=== PATIENT | female | born 1945 | race Caucasian/White ===

== ENCOUNTER 2021-02-11 09:45 | Outpatient (REF) | payer MEDICARE, SELFPAY ==
--- NOTE | ~2021-02-11 | MM_ITS ---
EXAMINATION: MM SCREENING DIGITAL BREAST TOMOSYNTHESIS, BILATERAL CLINICAL INFORMATION: Screening. Asymptomatic. The lifetime risk of breast cancer based on the Tyrer-Cuzick Model is 4%. COMPARISON: Mammography: 02/06/2020, 12/07/2018, 12/05/2017, 10/19/2016 TECHNIQUE: Digital breast tomosynthesis is performed in both the craniocaudal and mediolateral oblique views along with computer-aided detection (CAD). Synthesized 2D images are generated from the tomosynthesis. Additional left exaggerated CC view is provided. FINDINGS: There are scattered areas of fibroglandular density (ACR BI-RADS breast composition Category b). Left breast has focal lobular parenchymal asymmetry posterior 3:00. On the tomography, there is suggestion of probable fibrocystic changes in this area approximately 1.5 cm. Patient will be recalled for additional imaging. Remainder of the left breast is unremarkable. The right breast shows no significant changes from prior studies. Again, there is a dermal lesion 6:00 position right breast. Neither breast shows abnormal calcifications. The axilla are unremarkable. MM/MM tomosynthesis screening BI IMPRESSION: 1. Left: Parenchymal asymmetry posterior 3:00 position, possibly fibrocystic changes. 2. Right: No mammographic evidence of malignancy. ASSESSMENT: BI-RADS 0: Incomplete - Need Additional Imaging Evaluation RECOMMENDATION: 1. Additional views of the left breast (3-D spot MLO, 3-D spot CC). 2. Targeted ultrasound if warranted after review of the additional views. 3. Radiology department staff will contact the patient for additional imaging. This patient's information was entered into a reminder system with a target due date for their next mammogram.
== END 2021-02-11 09:46 | disposition home or self-care (01) ==
LOC: HO.MAMMO 09:45
PROVIDERS: PCP Internal Medicine; Visit Provider Internal Medicine
DX: Z12.31 Encounter for screening mammogram for malignant neoplasm of breast (principal)
CPT/HCPCS: 77063; 77067

== ENCOUNTER 2021-02-25 09:51 | Outpatient (REF) | payer MEDICARE, SELFPAY ==
--- NOTE | ~2021-02-25 | MM_ITS ---
EXAMINATION: MM DIAGNOSTIC DIGITAL BREAST TOMOSYNTHESIS, LEFT US DIAGNOSTIC ULTRASOUND BREAST, LEFT CLINICAL INFORMATION: Recall from screening for parenchymal asymmetry posterior 3:00 left breast, possibly fibrocystic changes. TC score 4%. COMPARISON: Mammography: Mammography 02/11/2021, 02/06/2020, 12/07/2018 TECHNIQUE: Digital breast tomosynthesis is performed. 2D images are generated from the tomosynthesis. The following views are obtained: Spot CC, spot MLO, standard ML. Ultrasound left breast is targeted to the central and 3:00 position. Patient is imaged supine and semi-oblique with arm elevated. Grayscale imaging and color Doppler are performed without and with harmonics. FINDINGS: The breasts are heterogeneously dense, which may obscure small masses (ACR BI-RADS breast composition Category c). The additional views confirm smooth benign-appearing nodule posterior 3:00 position 6.7 cm from nipple and measuring 1.3 x 1.1 cm in size. There is no architectural abnormality. Ultrasound demonstrates anechoic cyst posterior 3:00 position close to chest wall measuring 1.4 x 0.5 x 0.9 cm. Margins are smooth. There is increased through-transmission of sound. No color flow. There are a few other smaller cysts noted in the mid outer left breast the two largest measuring only 0.8 cm and 0.3 cm. No solid mass or architectural abnormality. Results are discussed with the patient at time of visit. MM/MM tomosynthesis added views L IMPRESSION: 1. Simple cyst posterior 3:00 position measuring 1.4 cm. 2. Several smaller cysts mid outer left breast under 1 cm. ASSESSMENT: BI-RADS 2: Benign RECOMMENDATION: Routine annual mammography screening. This patient's information was entered into a reminder system with a target due date for their next mammogram.
== END 2021-02-25 09:52 | disposition home or self-care (01) ==
LOC: HO.MAMMO 09:51
PROVIDERS: Visit Provider Internal Medicine
DX: N64.89 Other specified disorders of breast (principal)
CPT/HCPCS: 76642; 77061; 77065

== ENCOUNTER 2022-03-10 09:19 | Outpatient (REF) | payer MEDICARE, SELFPAY ==
--- NOTE | ~2022-03-10 | MM_ITS ---
EXAMINATION: MM SCREENING DIGITAL BREAST TOMOSYNTHESIS, BILATERAL CLINICAL INFORMATION: Screening. Asymptomatic. The lifetime risk of breast cancer based on the Tyrer-Cuzick Model is 3%. COMPARISON: Mammography: 02/25/2021, 02/11/2021, 02/06/2020, 12/07/2018; targeted left breast ultrasound 02/25/2021. TECHNIQUE: Digital breast tomosynthesis is performed in both the craniocaudal and mediolateral oblique views along with computer-aided detection (CAD). Synthesized 2D images are generated from the tomosynthesis. FINDINGS: The breasts are heterogeneously dense, which may obscure small masses (ACR BI-RADS breast composition Category c). There are no significant masses, abnormal calcifications, or other abnormalities. There is no developing density or architectural abnormality. There are dermal lesions overlying the posterior medial left breast and anterior right breast, marked with skin markers. Fibrocystic changes posterior left breast are decreased from prior exam. MM/MM tomosynthesis screening BI IMPRESSION: No mammographic evidence of malignancy. ASSESSMENT: BI-RADS 2: Benign RECOMMENDATION: Routine annual mammography screening. This patient's information was entered into a reminder system with a target due date for their next mammogram.
== END 2022-03-10 09:20 | disposition home or self-care (01) ==
LOC: HO.MAMMO 09:19
PROVIDERS: PCP Internal Medicine; Visit Provider Internal Medicine
DX: Z12.31 Encounter for screening mammogram for malignant neoplasm of breast (principal)
CPT/HCPCS: 77063; 77067

== ENCOUNTER 2023-03-16 12:28 | Outpatient (REF) | payer MEDICARE, SELFPAY ==
--- NOTE | ~2023-03-16 | MM_ITS ---
EXAMINATION: MM SCREENING DIGITAL BREAST TOMOSYNTHESIS, BILATERAL CLINICAL INFORMATION: Screening. Asymptomatic. COMPARISON: Mammography: This study is compared with prior exams dating back to 2018. TECHNIQUE: Digital breast tomosynthesis is performed in both the craniocaudal and mediolateral oblique views along with computer-aided detection (CAD). Synthesized 2D images are generated from the tomosynthesis. FINDINGS: The breasts are heterogeneously dense, which may obscure small masses (ACR BI-RADS breast composition Category c). There is a focal asymmetry in the 3:00 region of the right breast and anterior depth. Additional mammographic and targeted sonographic evaluation of this finding are warranted. In the left breast, there are no significant masses, abnormal calcifications, or other abnormalities. MM/MM tomosynthesis screening BI IMPRESSION: Focal asymmetry of the 3:00 region of the right breast warrants additional mammographic and targeted sonographic evaluation. No mammographic signs of malignancy left breast. ASSESSMENT: BI-RADS BI-RADS 0 - Incomplete: Needs additional Imaging. RECOMMENDATION: 1. Additional views of the right breast. 2. Targeted ultrasound if warranted after review of the additional views. 3. Radiology department staff will contact the patient for additional imaging. Additional Imaging required This examination should not preclude the clinical evaluation of a suspicious palpable abnormality. This patient's information was entered into a reminder system with a target due date for their next mammogram.
== END 2023-03-16 12:29 | disposition home or self-care (01) ==
LOC: HO.MAMMO 12:28
PROVIDERS: PCP Internal Medicine; Visit Provider Internal Medicine
DX: Z12.31 Encounter for screening mammogram for malignant neoplasm of breast (principal)
CPT/HCPCS: 77063; 77067

== ENCOUNTER → 2023-03-16 12:30 | Outpatient (BNV) | payer MEDICARE, SELFPAY | PROVIDERS: PCP Internal Medicine; Visit Provider Radiology Diagnostic Radiology | DX: Z12.31 Encounter for screening mammogram for malignant neoplasm of breast (principal) | CPT/HCPCS: 77063; 77067 ==

== ENCOUNTER 2023-04-25 11:16 | Outpatient (REF) | payer MEDICARE, SELFPAY ==
--- NOTE | ~2023-04-25 | US_ITS ---
EXAMINATION: MM DIAGNOSTIC DIGITAL BREAST TOMOSYNTHESIS, RIGHT US BREAST LIMITED, RIGHT MAMMOGRAPHY: CLINICAL INFORMATION: Callback for focal asymmetry in the 2:00 to 3:00 periareolar region right breast seen on screening exam. COMPARISON: Mammography: Screening mammography 03/16/2023. Exams dating back to 2014. TECHNIQUE: Digital breast tomosynthesis is performed in the following views: Right full-field 3-D 90 degrees ML view, 3-D right MLO spot compression view, and 3-D right CC spot compression view x2. FINDINGS: The breasts are heterogeneously dense, which may obscure small masses (ACR BI-RADS breast composition Category c). There is a spiculated appearing mass in the 2:00 axis of the right breast, with a solitary associated inferior punctate microcalcification, with the diameter of the lesion measuring 1.4 cm approximately. There may be 2 abutting smaller lesions in the slightly more posterior lateral right breast. This is also seen on the CC spot compression views in the slightly medial right breast, with extensive desmoplastic reaction. This will be evaluated by ultrasound. ULTRASOUND: CLINICAL INFORMATION: Spiculated appearing mass, 2:00 axis right breast, anterior one third. COMPARISON: None contributory. TECHNIQUE: Targeted sonographic evaluation was performed using a high frequency linear transducer. She was given to the 2:00 axis of the right breast. Selected archived documentation. FINDINGS: RIGHT BREAST: Within the right breast at the 2:00 axis, 2 cm from the nipple, there is an extremely hypoechoic irregular lesion with posterior acoustic shadowing, macrolobulated border, desmoplastic reaction with hyperechoic surrounding fat, there is mild abutting and internal color Doppler signal in regard to this lesion, which is also taller than wide, measuring 1.4 x 1.1 x 0.9 cm. This lesion is highly suspicious and ultrasound-guided biopsy recommended. Slightly directly inferior to this lesion in the 3:00 axis are some dilated periareolar ducts, 2 cm from the nipple, which appear to have some hypoechoic material within, possibly representing tumor or debris. This area could also be biopsied or evaluated by MRI. US/US breast RT limited mamm only IMPRESSION: Irregular hypoechoic mass, wider than tall, right breast 2:00 axis, 2 cm from the nipple as discussed above, correlating with the mammographic focus of concern. This is highly suspicious and ultrasound-guided biopsy is recommended. Inferior to this mass, there are dilated debris or possibly tumor filled ducts at the 3:00 axis, 2 cm from the nipple, retroareolar region. This area could be biopsied as well. Alternatively, MRI could be considered to assess disease extent. Findings and recommendations were discussed with the patient in detail. OVERALL ASSESSMENT: Mammography: BI-RADS 4 - Suspicious finding Ultrasound: BI-RADS 4 - Suspicious finding RECOMMENDATION: Biopsy recommended This patient's information was entered into a reminder system with a target due date for their next mammogram.
== END 2023-04-25 11:17 | disposition home or self-care (01) ==
LOC: HO.MAMMO 11:16
PROVIDERS: Visit Provider Internal Medicine
DX: N64.89 Other specified disorders of breast (principal)
CPT/HCPCS: 76642; 77061; 77065

== ENCOUNTER → 2023-04-25 11:30 | Outpatient (BNV) | payer MEDICARE, SELFPAY | PROVIDERS: Visit Provider Radiology Diagnostic Radiology | DX: N60.01 Solitary cyst of right breast (principal); R92.0 Mammographic microcalcification found on diagnostic imaging of breast | CPT/HCPCS: 76642; 77061; 77065; G0279 ==

== ENCOUNTER 2023-05-10 08:22 | Outpatient (AMB) | payer MEDICARE, SELFPAY ==
--- NOTE | 2023-05-10 08:23 | MHC.OFFVIS ---
Intake Vital Signs 05/10/23 08:31 Height 5 ft 7 in Weight 190 lb BMI 29.8 BP 138/76 Blood Pressure Location Lt brachial Position Sitting Pulse 95 Intake Visit Reasons: US biopsy Right breast mass @ 2 o'clock Intake Note: This patient presents for an assessment for Ultrasound guided biopsy for right breast mass at 2 o'clock. Patient c/o; reports no breast complaints at this time. 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 She had undergone a screening mammogram 3 weeks ago and was recall because of abnormal findings. She underwent targeted mammogram and ultrasound showing an irregular hypoechoic mass in the right breast, at the 2 o'clock position.. This was another area with note of dilated debris-filled ducts the 3 o'clock position although neoplastic process could not be ruled out. An MRI versus biopsy of both sites had been recommended for the right breast masses. The patient denies any palpable breast masses Her menarche was at age of 13. Her 1st was at age of 28. She had 2 pregnancies. She menopause in her early 50s. She stated that she took fertility medications to get . [facility] Medical History (Updated 05/10/23 @ 08:58 by Saroj Julien MD) Hypertension Breast mass, right Surgical History (Updated 05/10/23 @ 08:34 by DAYRON Kohler) H/O: section History of carpal tunnel surgery (~2006) Family History (Updated 05/10/23 @ 08:35 by DAYRON Kohler) Mother Uterine cancer Father Prostate cancer Brother Lung cancer Sister Lung cancer Social History Alcohol intake: never Patient Tobacco Use Status: Never used Tobacco Female Reproductive History Menstrual Age of Menarche: 13 Total pregnancies: 2 Review of Systems Const Denies chills and Denies fever(s) Card Denies chest pain, Denies dyspnea and Denies dyspnea on exertion Resp Denies cough, Denies dyspnea and Denies dyspnea on exertion GI Denies hematochezia and Denies change in bowel habits Denies hematuria Musc Denies back pain and Denies limited range of motion Neuro Denies focal weakness and Denies convulsions Psych Denies depression and Denies mood swings Physical Exam Vital Signs: Last Vital Signs Pulse 95 05/10/23 08:31 BP 138/76 05/10/23 08:31 BMI result Body Mass Index 29.8 Const General: comfortable and no acute distress Orientation/consciousness: patient oriented x3 Neck Neck: Yes no lymphadenopathy Chest Other: No palpable breast masses, no nipple or skin changes, no axillary lymphadenopathy Resp Auscultation: clear to auscultation bilaterally Cardio Rhythm: regular rhythm GI Palpation (GI): Soft to palpation, nontender and no guarding Neuro General: patient oriented x3 Assessment & Plan Assessment & Plan (1) Breast mass, right: Code(s): N63.10 - Unspecified lump in the right breast, unspecified quadrant Plan: Her mammogram and ultrasound show to breast masses on the right side as described above. I discussed this with the radiologist and he felt that he might be best to proceed with ultrasound biopsy of both sites I explained this to the patient. I discussed with her the technique of this procedure [facility] I will see her next week to discuss the path report. She seems to understand the plan well and is comfortable with Orders: Orders US breast ndl core biopsy RT 05/09/23 N63.10 - Unspecified lump in the right breast, unspecified quadrant US breast ndl core bio ea add Today N63.10 - Unspecified lump in the right breast, unspecified quadrant Coding Level of Care Code New Pt Level 3 (73129) Diagnoses Breast mass, right N63.10
[2023-05-10 08:31] VITALS: BP 138/76; PULSE 95; BMI 29.8
== END 2023-05-10 08:59 | disposition home or self-care (01) ==
PROVIDERS: PCP Internal Medicine; Visit Provider Surgery
DX: N63.10 Unspecified lump in the right breast, unspecified quadrant (principal)
CPT/HCPCS: 99203

== ENCOUNTER 2023-05-10 09:41 | Outpatient (REF) | payer MEDICARE, SELFPAY ==
--- NOTE | ~2023-05-10 | MM_ITS ---
PROCEDURE: US GUIDED BREAST BIOPSY, RIGHT CLINICAL INFORMATION: 2 site biopsy right breast: 1) Suspicious mass right breast 2:00 axis, 2 cm from the nipple, (site A) recommended for biopsy (BI-RADS 4). 2) Suspicious linear mass 2:00 axis periareolar right breast, (site B) recommended for biopsy (BI-RADS 4). COMPARISON: Mammography and ultrasound 05/05/2023, mammography 03/16/2023. PROCEDURAL DETAILS: The details of the procedure, as well as the risks, benefits, and alternatives to the procedure were explained to the patient in detail and all of her questions were answered, after which written informed consent was obtained. 2 sites and side were confirmed. 1) SITE A. Prior to the procedure, sonography revealed an irregular lobular hypoechoic shadowing taller than wide mass at the 2:00 axis right breast, 2 cm from the nipple, measuring 1.4 x 1.1 x 0.9 cm approximately. A time-out was performed, the lesion intended for biopsy was targeted, and the skin overlying the lesion was then prepped and draped in the usual sterile fashion. Using sonographic guidance, sterile technique, and 1% lidocaine without epinephrine for local anesthesia, 3 suitable core biopsies were obtained through the targeted area with a 14G spring loaded Achieve core biopsy device. There was real-time confirmation of appropriate needle passage. Sampling was documented. At the completion of tissue sampling, a single open coil-shaped metallic clip was deposited at the biopsy site. 2) SITE B. Prior to the procedure, sonography revealed a suspicious hypoechoic dilated duct in the right breast 3:00 axis, retroareolar location, measuring approximately 1.0 x 0.4 cm.. The lesion intended for biopsy was targeted, and the skin of the overlying the lesion was then prepped and draped in the usual sterile fashion. Using sonographic guidance, sterile technique, and 1% lidocaine without epinephrine for local anesthesia, 3 adequate core biopsies were obtained through the targeted area with a 14G spring loaded Achieve core biopsy device. There was real-time confirmation of appropriate needle passage. Sampling was documented. At the completion of tissue sampling, a single butterfly-shaped metallic clip was deposited at the biopsy site. There was no evidence of immediate complication. SPECIMEN: Appropriate samples were obtained from both sites. DIGITAL POST-PROCEDURE MAMMOGRAPHY: Breast density: The tissue is heterogeneously dense which may obscure small masses. BI-RADS version 5, category C. There are no new mammographic findings demonstrated. The postprocedure 2-view direct digital mammogram reveals satisfactory positioning of the SITE B (open coil) biopsy clip without migration, located centrally within the biopsied mass. The butterfly biopsy clip (SITE A) was noted to have migrated inferiorly from the biopsied mass approximately 5 mm, and laterally to the biopsied mass approximately 8 mm. This should be noted before surgery is undertaken. No evidence of hematoma. The patient tolerated the procedure well and, after assuring adequate hemostasis, was discharged in good condition after reviewing postbiopsy breast care instructions. Final pathology results are pending. MM/MM diagnostic mammo unilat RT IMPRESSION: 1. No immediate complication from ultrasound-guided 2 site percutaneous biopsy right breast. 2. Ultrasound was used to localize and guide marker dual clip placement. 3. The 2-view direct digital postprocedure mammogram reveals satisfactory positioning of the open coil biopsy clip, however the butterfly biopsy clip had migrated as detailed above. This should be noted before surgery is undertaken. 4. Final pathology results are pending. A separate report with final recommendations will be issued once these results are made available.
[2023-05-10] MEDS: Sodium Bicarbonate 8.4% 50 MEQ/50 ML VIAL SUBCUT (11:58)
[2023-05-10] MEDS: Lidocaine HCl 1 % 20 ML VIAL 18 ML SUBCUT (12:01)
== END 2023-05-10 09:42 | disposition home or self-care (01) ==
LOC: HO.MAMMO 09:41
PROVIDERS: Visit Provider Surgery
DX: C50.211 Malignant neoplasm of upper-inner quadrant of right female breast (principal); Z17.0 Estrogen receptor positive status [ER+]; Z79.899 Other long term (current) drug therapy
CPT/HCPCS: 19083; 19084; 77062; 77065; 88305; 88360; 99202; A4648

== ENCOUNTER → 2023-05-10 10:00 | Outpatient (BNV) | payer MEDICARE, SELFPAY | PROVIDERS: Visit Provider Radiology Diagnostic Radiology | DX: D05.11 Intraductal carcinoma in situ of right breast (principal); D24.2 Benign neoplasm of left breast | CPT/HCPCS: 19083; 19084; 77065 ==

== ENCOUNTER 2023-05-17 09:01 | Outpatient (AMB) | payer MEDICARE, SELFPAY ==
--- NOTE | 2023-05-17 09:02 | A.OFFVIS_ITS ---
Intake Vital Signs 05/17/23 09:08 Height 5 ft 7 in Weight 190 lb 0.016 oz BMI 29.8 Intake Visit Reasons: Right breast mass, biopsy results Intake Note: Patient is seen in office for biopsy results, following right breast mass. Patient c/o: reports no changes. 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 She had undergone a screening mammogram 3 weeks ago and was recalled because of abnormal findings. She underwent targeted mammogram and ultrasound showing an irregular hypoechoic mass in the right breast, at the 2 o'clock position.. This was another area with note of dilated debris-filled ducts the 3 o'clock position although neoplastic process could not be ruled out. She therefore underwent an ultrasound biopsy of these 2 sites last 05/10/2023. She is here to discuss the results. She tolerated biopsy well although she does state that she had bruisin g around the area. The patient denies any previous palpable breast masses. Her menarche was at age of 13. Her 1st was at age of 28. She had 2 pregnancies. She menopause in her early 50s. She stated that she took fertility medications to get . [facility] Medical History Invasive ductal carcinoma of right breast in female Hypertension Breast mass, right Surgical History H/O: section History of carpal tunnel surgery (~2006) Family History Mother Uterine cancer Father Prostate cancer Brother Lung cancer Sister Lung cancer Social History Alcohol intake: never Patient Tobacco Use Status: Never used Tobacco Female Reproductive History Menstrual Age of Menarche: 13 Review of Systems Const Denies chills and Denies fever(s) Card Denies chest pain, Denies dyspnea and Denies dyspnea on exertion Resp Denies cough, Denies dyspnea and Denies dyspnea on exertion GI Denies hematochezia and Denies change in bowel habits Denies hematuria Musc Denies back pain and Denies limited range of motion Neuro Denies focal weakness and Denies convulsions Psych Denies depression and Denies mood swings Physical Exam Vital Signs: BMI result Body Mass Index 29.8 Const General: comfortable and no acute distress Orientation/consciousness: patient oriented x3 Neck Neck: Yes no lymphadenopathy Chest Other: Some ecchymosis on the biopsy site on the right breast; no palpable lymph nodes Resp Auscultation: clear to auscultation bilaterally Cardio Rhythm: regular rhythm GI Palpation (GI): Soft to palpation, nontender and no guarding Neuro General: patient oriented x3 Assessment & Plan Assessment & Plan (1) Invasive ductal carcinoma of right breast in female: Code(s): C50.911 - Malignant neoplasm of unspecified site of right female breast Plan: Unfortunately, the procedure of the mass at the 2 o'clock position showed an invasive ductal carcinoma. The ER, [place], and HER2 receptor status are not back yet. On mammogram, the this is about 1.4 cm in widest dimension. The biopsy of the mass at the retroareolar area showed benign breast tissue with extensive stromal fibrosis. I therefore had a long and extensive discussion with her about options for the breast cancer at the 2 o'clock position. I discussed with her the technique of mastectomy and sentinel node biopsy. I also reviewed with her the option of lumpectomy with Hologic localization with subsequent radiation to the whole breast. This will be done with sentinel node biopsy of as well. I reviewed with her the risks and benefits of each option. She wants to proceed with lumpectomy, Hologic localizer, and sentinel biopsy. I will also refer her to the oncologist so that she can be seen preoperatively. Orders: Referrals Hematology & Oncology Referral C50.911 - Malignant neoplasm of unspecified site of right female breast Coding Level of Care Code Est Pt Level 4 (77604) Diagnoses Invasive ductal carcinoma of right breast in female C50.911
[2023-05-17 09:08] VITALS: BMI 29.8
== END 2023-05-17 09:35 | disposition home or self-care (01) ==
PROVIDERS: Visit Provider Surgery
DX: C50.911 Malignant neoplasm of unspecified site of right female breast (principal)
CPT/HCPCS: 99214

== ENCOUNTER → 2023-05-17 09:01 | Outpatient (BNVA) | payer MEDICARE, SELFPAY | PROVIDERS: Visit Provider Surgery | DX: C50.211 Malignant neoplasm of upper-inner quadrant of right female breast (principal) | CPT/HCPCS: 99212 ==

== ENCOUNTER → 2023-05-24 10:18 | Outpatient (BNV) | payer MEDICARE, SELFPAY | PROVIDERS: PCP Internal Medicine; Visit Provider Internal Medicine | DX: D05.11 Intraductal carcinoma in situ of right breast (principal) | CPT/HCPCS: 99202; 99204; 99214; G2211 ==

== ENCOUNTER 2023-05-29 07:50 | Outpatient (REF) | payer MEDICARE, SELFPAY ==
--- NOTE | ~2023-05-29 | MM_ITS ---
EXAMINATION: MM MAMMOGRAM GUIDED RFID LOCALIZATION BREAST, RIGHT CLINICAL INFORMATION: Right breast ductal carcinoma in situ, grade 1, and invasive ductal carcinoma, grade 1. COMPARISON: 05/10/2023, 04/25/2023, 03/16/2023, 03/10/2022. TECHNIQUE NEEDLE LOC: Proper informed consent is obtained from the patient after discussion of the procedure, potential risks and complications, and alternatives including declining the procedure today. Patient was given an opportunity for questions. The patient appeared to understand. The patient consented to the procedure and signed the consent form. GUIDANCE: Digital mammography. APPROACH: Medial to lateral. TARGET: Mass/open coil clip. ANESTHESIA: carbonated lidocaine 1%: 5 mL. LOCALIZATION SYSTEM: -[employer] LOCallizer Wire-Free Guidance System with 12g needle applicator. -Length: 7 cm. -RADIOFREQUENCY TAG: ID # [id number] DERMATOTOMY: Not required. RF Tag ID confirmed with LOCalizer Guidance System prior to placement. The skin is prepped and local anesthesia administered. The needle is positioned and RFID tag deployed. Final images demonstrate the LOCalizer RF tag to reside just lateral to and within the superior aspect of the right breast mass. On the ML, the open coil clip is located approximately 6 mm above the mass and RFID. The patient tolerated the procedure well and had no immediate complications. Dressing placed and home instructions reviewed. Please review the dedicated marked images for further detail. MM/MM needle loc RT IMPRESSION: -Status post right breast RFID localization.
[2023-05-29] MEDS: Lidocaine HCl 1 % 20 ML VIAL 9 ML SUBCUT (09:05)
[2023-05-29] MEDS: Sodium Bicarbonate 8.4% 50 MEQ/50 ML VIAL SUBCUT (09:06)
== END 2023-05-29 07:51 | disposition home or self-care (01) ==
LOC: HO.MAMMO 07:50
PROVIDERS: Visit Provider Surgery
DX: C50.911 Malignant neoplasm of unspecified site of right female breast (principal)
CPT/HCPCS: 19281; C1819

== ENCOUNTER 2023-06-07 08:58 | Day surgery (SDC) | payer MEDICARE, SELFPAY ==
--- NOTE | 2023-06-06 09:17 | P.CONAN_ITS ---
Documented by User: Johanne Abreu NP 06/06/23 09:18 HPI - Anesthesia Eval Consult details Narrative: 77yo F for Right Breast Lumpectomy w/LOCalizer,[place] Node Biopsy PMFSH Active Problems Active Problems: All Active Problems (Updated 05/24/23 @ 16:14 by Lexie Allen MD) Invasive ductal carcinoma of right breast in female (Acute) Hypertension (Acute) Breast mass, right (Acute) Past Medical History Medical History Right leg DVT Invasive ductal carcinoma of right breast in female Hypertension Breast mass, right Family History Family History (Updated 05/24/23 @ 10:29 by Ellen Miller) Mother Uterine cancer Father Prostate cancer Brother Lung cancer Sister Lung cancer Paternal Aunt Lung cancer Ovarian cancer Surgical History Surgical History H/O: section History of carpal tunnel surgery (~2006) Social History Social History (Updated 05/24/23 @ 10:30 by Ellen Miller) Household Members: None Housing: House Alcohol intake: never Patient Tobacco Use Status: Never used Tobacco Use of substances other than those prescribed or required for medical reasons: No Are you DNR?: No Advance Directives: No Advance Directives Information Provided: Yes service: No Current occupational status: employed and retired Meds Allergies Allergy/AdvReac Type Severity Reaction Status Date / Time lisinopril AdvReac Severe Cough Verified 06/07/23 09:18 Home Medications Medication Instructions Recorded Confirmed Last Taken Type hydrochlorothiazide 12.5 mg tablet 12.5 mg PO DAILY 05/10/23 06/07/23 06/07/23 History irbesartan 150 1 tab PO DAILY 05/10/23 06/07/23 06/07/23 History mg-hydrochlorothiazide 12.5 mg tablet calcium carbonate 600 mg-vitamin 1 tab PO DAILY 05/24/23 05/24/23 Unknown History D3 5 mcg (200 unit) tablet fluticasone propionate 50 1 spray intranasal BID 05/24/23 05/24/23 Unknown History mcg/actuation nasal spray,suspension omega 0-qvn-jyv-fish oil 1,000 mg 1 cap PO DAILY 05/24/23 06/07/23 06/06/23 History (120 mg-180 mg) capsule (Fish Oil) Exam Pertinent Lab Results Pertinent Lab Results: Laboratory Tests 05/24/23 11:20 WBC 6.0 Hgb 16.1 H Hct 46.5 Plt Count 162 Sodium 142 Potassium 3.7 Chloride 102 Carbon Dioxide 33 H BUN 20 H Creatinine 0.86 Assessment and Plan Assessment Anesthesia Assessment: Chart Reviewed Documented by User: Bob Holder MD 06/07/23 11:48 PMFSH Past Medical History Medical History Right leg DVT Invasive ductal carcinoma of right breast in female Hypertension Breast mass, right Family History Family History (Updated 05/24/23 @ 10:29 by Ellen Miller) Mother Uterine cancer Father Prostate cancer Brother Lung cancer Sister Lung cancer Paternal Aunt Lung cancer Ovarian cancer Family history of problems with anesthesia: No Surgical History Surgical History H/O: section History of carpal tunnel surgery (~2006) History of Problems with Anesthesia: No Social History Social History (Updated 05/24/23 @ 10:30 by Ellen Miller) Household Members: None Housing: House Alcohol intake: never Patient Tobacco Use Status: Never used Tobacco Use of substances other than those prescribed or required for medical reasons: No Are you DNR?: No Advance Directives: No Advance Directives Information Provided: Yes service: No Current occupational status: employed and retired Meds Allergies Allergy/AdvReac Type Severity Reaction Status Date / Time lisinopril AdvReac Severe Cough Verified 06/07/23 09:18 Home Medications Medication Instructions Recorded Confirmed Last Taken Type hydrochlorothiazide 12.5 mg tablet 12.5 mg PO DAILY 05/10/23 06/07/23 06/07/23 History irbesartan 150 1 tab PO DAILY 05/10/23 06/07/23 06/07/23 History mg-hydrochlorothiazide 12.5 mg tablet calcium carbonate 600 mg-vitamin 1 tab PO DAILY 05/24/23 05/24/23 Unknown History D3 5 mcg (200 unit) tablet fluticasone propionate 50 1 spray intranasal BID 05/24/23 05/24/23 Unknown History mcg/actuation nasal spray,suspension omega 8-gtp-drq-fish oil 1,000 mg 1 cap PO DAILY 05/24/23 06/07/23 06/06/23 History (120 mg-180 mg) capsule (Fish Oil) Exam Airway Mallampati Class: III TM Dist: >3cm Neck ROM: Full Assessment and Plan Assessment Anesthesia Assessment: Anesthesia Plan Discussed Final Anesthetic Review Family History of Problems with Anesthesia: No History of Problems with Anesthesia: No NPO: Yes ASA Class: II Final Preanesthetic Review: No Changes in Pt Med Stat, Meds/Allgs Chart Reviewed, Consent Obtained/Reviewed and Anes Risks/Benef Reviewed Patient Risk: Low Procedure Risk: Low Anesthetic Plan Anesthetic Plan: GA Disposition: Standard PACU
--- NOTE | ~2023-06-07 | MM_ITS ---
EXAMINATION: NEEDLE LOCALIZATION SPECIMEN FROM THE RIGHT BREAST CLINICAL INFORMATION: Right breast excision for invasive ductal carcinoma grade 1. COMPARISON: RFID localization May 29. TECHNIQUE: Single view of the surgical specimen was obtained. FINDINGS: Single specimen view demonstrates the presence of the open coil clip, RF ID chip, and irregular mass contains centrally within the specimen. MM/MM surgical specimen IMPRESSION: Satisfactory excision of the clip, RFID chip, and mass lesion. These findings were communicated to the surgeon in the OR at the time of specimen radiography.
[2023-06-07 09:11] VITALS: BMI 29.5
[2023-06-07] MEDS: Lactated Ringers 1,000 ML 100 ML IVCONT (09:35)
[2023-06-07 09:36] VITALS: BP 149/77; PULSE 79; RESP 16; TEMP 35.8; O2SAT 97
--- NOTE | 2023-06-07 11:46 | MHC.SHP ---
Pre-Procedural Eval Section A Date of Service: 06/07/23 The patient is an INPATIENT: No Changes since office visit: No Cold of Flu in the past 2 weeks, No New Medical Problems, No Changes in Medication and No Patient answered all questions The History & Physical has been completed within 30 days and I have reviewed it.: Yes Section B Chief Complaint: Malignant neoplasm of unspecified site of right fe Allergies: Allergies Allergy/AdvReac Type Severity Reaction Status Date / Time lisinopril AdvReac Severe Cough Verified 06/07/23 09:18 Plan I have reviewed the history and physical and performed a pertinent physical examination on my patient. No changes have occurred unless specified. Time Spent With Patient Time: Total time managing care of this patient today ____ minutes.
--- NOTE | 2023-06-07 14:04 | P.OP_ITS ---
Operative Note Operative Note Date of Service: 06/07/23 Narrative: Preop diagnosis: Right breast ductal carcinoma Postop diagnosis: The same Procedure: Lumpectomy, right breast with Hologic localizer, with sentinel node biopsy using Magtrace Surgeon: Saroj Julien MD bilingual medical assistant: HOLLIS Irene The patient is a 77 year female recently diagnosed to have a right breast invasive ductal carcinoma. She wanted to proceed with lumpectomy and sentinel biopsy. She was aware of the risks, benefits, and alternatives . She was brought to the operating room. She was placed supine under general anesthesia via laryngeal mask airway. A surgical time-out had been done. The patient received cefazolin 2 g IV preoperatively The nipple areolar complex on the right breast was retracted sub area rejection of the Mag trace was done. Massaging of the breast was done for about 5 minutes to stimulate passage of Magtrace through the lymphatics. The right breast was then prepped and draped in the usual sterile fashion. The right arm had been abducted to expose the axilla. We used the Hologic localizer identify the location of the RF clip closest to the skin. This area was infiltrated with lidocaine 1%. I made a transverse incision using a blade 15. This carried down with electrocautery through the full-thickness of the skin. We then proceeded to use the Hologic localizing probe to guide us with dissection and we used the curved Simon scissors to diss ect around the lesion carefully, making sure that we had adequate margins with the aid of the Hologic probe. Eventually, I was able to circumferentially dissect around the lesion. I marked the superior and medial margins with sutures. This was sent for immediate gross pathologic examination. We then proceeded to achieve hemostasis on the lumpectomy site. This was done with the cautery. I then packed the area with gauze Reray of the specimen in the OR showed the RF clip as well as the original biopsy clip to be within the specimen. We then proceeded to do the sentinel biopsy. I used the Mag trace probe to look for the optimal area of the incision in the axilla. The incision was made using blade 15. This carried down with electrocautery through the full-thickness of the skin and subcutaneous fat. I fascia of the axilla to enter the axillary fat pad. We then periodically used the Mag trace probe to look for any elevated counts. I was able to eventually identify 2 lymph nodes that were . Both sentinel nodes had counts of over 3000. There were both sent as sentinel node 1 and 2. I then reapposed the deep subcutaneous tissue with Polysorb 3-0 interrupted sutures. Skin closure was achieved on this axillary incision with Polysorb 4-0 subcuticular running stitch. The pathologist then called to state that we needed to excise more margins on the anterior surface of the specimen. Therefore I proceeded to remove more margins in the anterior superior aspect of the excision site as well as in the anterior inferior aspect and these were sent as 2 additional margins. We observe for hemostasis. I cauterized oozing areas. We copiously irrigated. Once hemostasis was confirmed, proceeded to then reappose the breast tissue with Polysorb 3-0 interrupted sutures. Skin closure was achieved with Polysorb 4-0 subcuticular running sutures. All incisions were infiltrated with Marcaine 0.5% for postop analgesia. Dressings were applied. The procedure was completed. The patient tolerated the procedure well. There were no immediate complications. Initial and final counts of sponges and instruments were correct. Estimated blood loss was about 100 cc The patient was extubated without difficulty and transferred to the recovery room with stable vital signs Breast [place] Node Biopsy Substrate(s) used for sentinel node biopsy in the non-neoadjuvant setting: Radiotracer Substrate(s) used for sentinel node biopsy in the neoadjuvant setting: N/A All colored nodes or non-colored nodes present at the end of a dye filled lymphatic channel were removed, if dye was used as the substrate for localization: N/A All significantly radioactive nodes were removed, if radionuclide was used as the substrate for localization: Yes All palpably suspicious nodes were removed, if present: Yes If clips were placed in pathology-involved nodes, those nodes were identified and removed: Yes General Surg. - Synoptic Notes Breast [place] Node Biopsy Substrate(s) used for sentinel node biopsy in the non-neoadjuvant setting: Radiotracer Substrate(s) used for sentinel node biopsy in the neoadjuvant setting: N/A All colored nodes or non-colored nodes present at the end of a dye filled lymphatic channel were removed, if dye was used as the substrate for localizat ion: N/A All significantly radioactive nodes were removed, if radionuclide was used as the substrate for localization: Yes All palpably suspicious nodes were removed, if present: Yes If clips were placed in pathology-involved nodes, those nodes were identified and removed: Yes
[2023-06-07 14:25] VITALS: BP 136/72; PULSE 72; RESP 14; TEMP 36.6; O2SAT 100
[2023-06-07 14:30] VITALS: BP 137/62; PULSE 61; RESP 16; O2SAT 100
[2023-06-07 14:35] VITALS: BP 143/74; PULSE 61; RESP 16; O2SAT 96
[2023-06-07 14:40] VITALS: BP 134/82; PULSE 63; RESP 16; TEMP 36.1; O2SAT 96
[2023-06-07] MEDS: oxyCODONE HCl Immed Release 5 MG TABLET PO (14:54)
[2023-06-07 14:55] VITALS: BP 134/82; PULSE 61; RESP 16; TEMP 36.1; O2SAT 96
== END 2023-06-07 15:20 | disposition home or self-care (01) ==
PROVIDERS: PCP Internal Medicine; Visit Provider Surgery
PROC: (CPT 19301; principal; 2023-06-07 10:50)
DX: C50.211 Malignant neoplasm of upper-inner quadrant of right female breast (principal); Z17.0 Estrogen receptor positive status [ER+]; I10 Essential (primary) hypertension; Z88.8 Allergy status to other drugs, medicaments and biological substances; Z79.899 Other long term (current) drug therapy
CPT/HCPCS: 19301; 38525; 38900; 88307; 88329; 88342; J0131; J0665; J0690; J2405; J2704; J3010

== ENCOUNTER → 2023-06-07 08:58 | Outpatient (BNV) | payer MEDICARE, SELFPAY | PROVIDERS: PCP Internal Medicine; Visit Provider Surgery | DX: C50.911 Malignant neoplasm of unspecified site of right female breast (principal) | CPT/HCPCS: 19301; 38525; 38900 ==

== ENCOUNTER 2023-06-19 09:46 | Outpatient (AMB) | payer MEDICARE, SELFPAY ==
--- NOTE | 2023-06-19 09:47 | MHC.OFFVIS ---
Intake Vital Signs 06/19/23 09:57 Height 5 ft 7 in Weight 191 lb 2 oz BMI 29.9 BP 134/83 Blood Pressure Location Lt brachial Position Sitting Pulse 88 Intake Visit Reasons: S/P Rt breast lumpectomy w/seed and SN Intake Note: This patient presents for a post-op assessment status post Lumpectomy, right breast with Hologic localizer, with sentinel node biopsy using Magtrace. Patient c/o;denies any concerns regarding the incision Reimbursement Consultant Required: No Accompanied by: Self / Same As Patient Allergies lisinopril Adverse Reaction (Severe, Verified 06/19/23 09:56) Cough HPI S/P Rt breast lumpectomy w/seed and SN HPI Details She had undergone lumpectomy, sentinel biopsy of the right breast for an invasive ductal cancer last 06/07/2023. She tolerated procedure well. She denies significant complaints. She says she really took only pain medications for 1 day PFSH Medical History Right leg DVT Invasive ductal carcinoma of right breast in female Hypertension Breast mass, right Surgical History History of lumpectomy of right breast (~06/07/23) H/O: section History of carpal tunnel surgery (~2006) Family History Mother Uterine cancer Father Prostate cancer Brother Lung cancer Sister Lung cancer Paternal Aunt Lung cancer Ovarian cancer Social History Household Members: None Housing: House Alcohol intake: never Comment: NOT INDICATED Patient Tobacco Use Status: Never used Tobacco service: No Current occupational status: employed and retired Female Reproductive History Menstrual Age of Menarche: 13 Review of Systems Const Denies chills and Denies fever(s) Card Denies chest pain, Denies dyspnea and Denies dyspnea on exertion Resp Denies cough, Denies dyspnea and Denies dyspnea on exertion GI Denies hematochezia and Denies change in bowel habits Denies hematuria Musc Denies back pain and Denies limited range of motion Neuro Denies focal weakness and Denies convulsions Psych Denies depression and Denies mood swings Physical Exam Vital Signs: Last Vital Signs Pulse 88 06/19/23 09:57 BP 134/83 06/19/23 09:57 BMI result Body Mass Index 29.9 Const General: comfortable and no acute distress Chest Other: Lumpectomy site and sentinel node biopsy site both well healed, not infected Resp Effort & Inspection: normal respiratory effort Assessment & Plan Assessment & Plan (1) Invasive ductal carcinoma of right breast in female: Code(s): C50.911 - Malignant neoplasm of unspecified site of right female breast Plan: Status post lumpectomy, right breast mass sentinel biopsy. She is doing very well. All incisions are well healed Her path report confirmed invasive ductal carcinoma with negative margins. She has a T1 N0 invasive ductal carcinoma this time. 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 I will discuss with the oncologist about the possible need to remove more margins on the anterior inferior margin. I will therefore see the patient again in about a month. Coding Level of Care Code Global (59301) Diagnoses Invasive ductal carcinoma of right breast in female C50.911
[2023-06-19 09:57] VITALS: BP 134/83; PULSE 88; BMI 29.9
== END 2023-06-19 10:09 | disposition home or self-care (01) ==
PROVIDERS: Visit Provider Surgery
DX: C50.911 Malignant neoplasm of unspecified site of right female breast (principal)
CPT/HCPCS: 99024

== ENCOUNTER → 2023-06-19 09:46 | Outpatient (BNVA) | payer MEDICARE, SELFPAY | PROVIDERS: Visit Provider Surgery | DX: C50.911 Malignant neoplasm of unspecified site of right female breast (principal) | CPT/HCPCS: 99212 ==

== ENCOUNTER 2023-07-13 08:03 | Outpatient (REF) | payer MEDICARE, SELFPAY | END 2023-07-13 08:04 | disposition home or self-care (01) | LOC: HO.MAMMO 08:03 | PROVIDERS: PCP Internal Medicine; Visit Provider Internal Medicine | DX: M81.0 Age-related osteoporosis without current pathological fracture (principal); C50.911 Malignant neoplasm of unspecified site of right female breast | CPT/HCPCS: 77080 ==

== ENCOUNTER 2023-08-09 13:19 | Outpatient (AMB) | payer MEDICARE, SELFPAY ==
[2023-08-09 13:30] VITALS: BP 139/85; PULSE 93; BMI 30.4
--- NOTE | 2023-08-09 13:30 | A.OFFVIS_ITS ---
Intake Vital Signs 08/09/23 13:30 Height 5 ft 7 in Weight 194 lb BMI 30.4 BP 139/85 Blood Pressure Location Lt brachial Position Sitting Pulse 93 Intake Visit Reasons: one month S/P Rt breast lumpectomy w/seed and SN Intake Note: This patient presents for a one month follow-up breast examination. Pt c/o; reports no complaints at this time. 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 She says that she has well overall. She is to start with radiation treatment tomorrow. PFSH Medical History Right leg DVT Invasive ductal carcinoma of right breast in female Hypertension Breast mass, right Surgical History History of lumpectomy of right breast (~06/07/23) H/O: section History of carpal tunnel surgery (~2006) Family History Mother Uterine cancer Father Prostate cancer Brother Lung cancer Sister Lung cancer Paternal Aunt Lung cancer Ovarian cancer Social History Household Members: None Housing: House Alcohol intake: never Comment: NOT INDICATED Patient Tobacco Use Status: Never used Tobacco service: No Current occupational status: employed and retired Female Reproductive History Menstrual Age of Menarche: 13 Review of Systems Const Denies chills and Denies fever(s) Card Denies chest pain, Denies dyspnea and Denies dyspnea on exertion Resp Denies cough, Denies dyspnea and Denies dyspnea on exertion GI Denies hematochezia and Denies change in bowel habits Denies hematuria Musc Denies back pain and Denies limited range of motion Neuro Denies focal weakness and Denies convulsions Psych Denies depression and Denies mood swings Physical Exam Const General: comfortable and no acute distress Chest Other: Lumpectomy sites are well healed the right Assessment & Plan Assessment & Plan (1) Invasive ductal carcinoma of right breast in female: Code(s): C50.911 - Malignant neoplasm of unspecified site of right female breast Plan: Status post lumpectomy and sentinel biopsy. She has a T1 N0 invasive ductal carcinoma, along with DCIS in the specimen She is to start radiation treatment tomorrow. She is to continue to follow-up with Dr. Allen as well of Oncology. I will see her in the office for follow-up visit in about 6 months. Coding Level of Care Code Global (76813) Diagnoses Invasive ductal carcinoma of right breast in female C50.911
== END 2023-08-09 13:43 | disposition home or self-care (01) ==
PROVIDERS: PCP Internal Medicine; Visit Provider Surgery
DX: C50.911 Malignant neoplasm of unspecified site of right female breast (principal)
CPT/HCPCS: 99024

== ENCOUNTER → 2023-08-09 13:19 | Outpatient (BNVA) | payer MEDICARE, SELFPAY | PROVIDERS: PCP Internal Medicine; Visit Provider Surgery | DX: Z48.3 Aftercare following surgery for neoplasm (principal); C50.911 Malignant neoplasm of unspecified site of right female breast | CPT/HCPCS: 99212 ==

== ENCOUNTER 2024-02-08 08:53 | Outpatient (AMB) | payer MEDICARE, SELFPAY ==
--- NOTE | 2024-02-08 08:56 | MHC.OFFVIS ---
Vital Signs 02/08/24 09:03 Height 5 ft 7 in Weight 187 lb BMI 29.3 BP 137/87 Blood Pressure Location Lt brachial Position Sitting Pulse 137 H Intake Visit Reasons: Breast exam, 6 mo follow up Intake Note: This patient presents for a six month breast examination assessment. Pt c/o; reports no breast complaints. 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 Has a history of invasive ductal cancer. She continues to do well after lumpectomy, sentinel biopsy of the right breast for an invasive ductal cancer last 06/07/2023. She says that she has well overall. She has completed radiation treatment for the right breast. [facility] Medical History (Updated 02/08/24 @ 09:05 by Saroj Julien MD) History of breast cancer Right leg DVT Invasive ductal carcinoma of right breast in female Hypertension Breast mass, right Surgical History History of lumpectomy of right breast (~06/07/23) H/O: section History of carpal tunnel surgery (~2006) Family History Mother Uterine cancer Father Prostate cancer Brother Lung cancer Sister Lung cancer Paternal Aunt Lung cancer Ovarian cancer Social History Household Members: None Housing: House Alcohol intake: never Comment: NOT INDICATED Patient Tobacco Use Status: Never used Tobacco service: No Current occupational status: employed and retired Female Reproductive History Menstrual Age of Menarche: 13 Review of Systems Const Denies chills and Denies fever(s) Card Denies chest pain, Denies dyspnea and Denies dyspnea on exertion Resp Denies cough, Denies dyspnea and Denies dyspnea on exertion GI Denies hematochezia and Denies change in bowel habits Denies hematuria Musc Denies back pain and Denies limited range of motion Neuro Denies focal weakness and Denies convulsions Psych Denies depression and Denies mood swings Physical Exam Vital Signs: Last Vital Signs Pulse 137 H 02/08/24 09:03 BP 137/87 08/01/24 09:03 BMI result Body Mass Index 29.3 Const General: comfortable and no acute distress Orientation/consciousness: patient oriented x3 Neck Neck: Yes no lymphadenopathy Chest Other: No palpable breast masses, no nipple or skin changes, no axillary lymphadenopathy Resp Auscultation: clear to auscultation bilaterally Cardio Rhythm: regular rhythm GI Palpation (GI): Soft to palpation, nontender and no guarding Neuro General: patient oriented x3 Assessment & Plan Assessment & Plan (1) History of breast cancer: Code(s): Z85.3 - Personal history of malignant neoplasm of breast Category: Medical Plan: She had undergone lumpectomy, sentinel biopsy and radiation treatment of the right breast for invasive ductal cancer. She is doing well. 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 She is scheduled to have a mammogram this March. I will see her again in the office in about 6 months unless the mammogram is abnormal She continues to follow up with Dr. lAlen. Coding Level of Care Code Est Pt Level 3 (65301) Diagnoses History of breast cancer Z85.3
[2024-02-08 09:03] VITALS: BP 137/87; PULSE 137; BMI 29.3
== END 2024-02-08 09:18 | disposition home or self-care (01) ==
PROVIDERS: PCP Internal Medicine; Visit Provider Surgery
DX: C50.911 Malignant neoplasm of unspecified site of right female breast (principal)
CPT/HCPCS: 99213

== ENCOUNTER → 2024-02-08 08:53 | Outpatient (BNVA) | payer MEDICARE, SELFPAY | PROVIDERS: PCP Internal Medicine; Visit Provider Surgery | DX: C50.911 Malignant neoplasm of unspecified site of right female breast (principal) | CPT/HCPCS: 99212 ==

== ENCOUNTER → 2024-04-11 14:00 | Outpatient (BNV) | payer MEDICARE, SELFPAY | PROVIDERS: PCP Internal Medicine; Visit Provider Internal Medicine | DX: Z85.3 Personal history of malignant neoplasm of breast (principal) | CPT/HCPCS: 77066; G0279 ==

== ENCOUNTER 2024-04-11 14:01 | Outpatient (REF) | payer MEDICARE, SELFPAY ==
--- NOTE | ~2024-04-11 | MM_ITS ---
EXAMINATION: MM DIAGNOSTIC DIGITAL BREAST TOMOSYNTHESIS, BILATERAL CLINICAL INFORMATION: History of right breast cancer in 2022 status post lumpectomy. COMPARISON: Mammography: Comparison is made with relevant prior exams. TECHNIQUE: Digital breast mammography with tomosynthesis is performed in both the craniocaudal and mediolateral oblique views along with computer-aided detection (CAD). FINDINGS: There are scattered areas of fibroglandular density (ACR BI-RADS breast composition Category b). Status post right lumpectomy changes. Right breast marker clip from previous benign needle core biopsy. There are no significant masses, abnormal calcifications, or other abnormalities. Results are provided to the patient at time of visit by the technologist. MM/MM tomosynthesis diagnostic BI IMPRESSION: No mammographic evidence of malignancy. ASSESSMENT: BI-RADS BI-RADS 2 - Benign Findings RECOMMENDATION: 1 year F/U This patient's information was entered into a reminder system with a target due date for their next mammogram. Electronically signed by: Adina Cohen DO 04/11/2024 02:59 PM EDT
== END 2024-04-11 14:02 | disposition home or self-care (01) ==
LOC: HO.MAMMO 14:01
PROVIDERS: PCP Internal Medicine; Visit Provider Surgery
DX: Z85.3 Personal history of malignant neoplasm of breast (principal)
CPT/HCPCS: 77062; 77066

== ENCOUNTER → 2024-08-15 08:45 | Outpatient (BNVA) | payer MEDICARE, SELFPAY | PROVIDERS: PCP Internal Medicine; Visit Provider Surgery | DX: Z85.3 Personal history of malignant neoplasm of breast (principal) | CPT/HCPCS: 99212 ==

== ENCOUNTER 2025-03-05 15:11 | Outpatient (AMB) | payer MEDICARE, SELFPAY ==
--- NOTE | 2025-03-05 15:16 | A.OFFVIS_ITS ---
Vital Signs 03/05/25 15:22 Height 5 ft 7 in Weight 179 lb BMI 28.0 BP 117/56 L Blood Pressure Location Rt brachial Position Sitting Pulse 67 Intake Visit Reasons: breast exam 6 month follow up Intake Note: Patient here for 6mo breast examination. [facility] 08-15-2024 Patient c/o: no concerns with breasts. Denies lumps, rash, redness, nipple discharge. Reports no changes in medical hx since last visit. 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 Has a history of invasive ductal cancer. She had undergone lumpectomy, sentinel biopsy of the right breast for an invasive ductal cancer last 06/07/2023. She has completed radiation treatment for the right breast. 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 She is seeing a specialist in [place] for this. She had a mammogram last April, this was unremarkable. She is due for er next mammogram in 6 weeks. [facility] Medical History Atrial fibrillation History of breast cancer Right leg DVT Invasive ductal carcinoma of right breast in female Hypertension Breast mass, right Surgical History History of lumpectomy of right breast (~06/07/23) H/O: section History of carpal tunnel surgery (~2006) Family History Mother Uterine cancer Father Prostate cancer Brother Lung cancer Sister Lung cancer Paternal Aunt Lung cancer Ovarian cancer Social History Household Members: None Housing: House Alcohol intake: never Comment: NOT INDICATED Patient Tobacco Use Status: Never used Tobacco service: No Current occupational status: employed and retired Female Reproductive History Menstrual Age of Menarche: 13 Review of Systems Const Denies chills and Denies fever(s) Card Denies chest pain, Denies dyspnea and Reports dyspnea on exertion Resp Denies cough, Denies dyspnea and Reports dyspnea on exertion GI Denies hematochezia and Denies change in bowel habits Denies hematuria Musc Denies back pain and Denies limited range of motion Neuro Denies focal weakness and Denies convulsions Psych Denies depression and Denies mood swings Physical Exam Vital Signs: Last Vital Signs Pulse 67 03/05/25 15:22 BP 117/56 L 03/05/25 15:22 BMI result Body Mass Index 28.0 Const General: comfortable and no acute distress Orientation/consciousness: patient oriented x3 Neck Neck: Yes no lymphadenopathy Chest Other: No palpable breast masses, no nipple or skin changes on the breasts, no axillary lymphadenopathy Resp Auscultation: clear to auscultation bilaterally Cardio Rhythm: regular rhythm GI Palpation (GI): Soft to palpation, nontender and no guarding Neuro General: patient oriented x3 Assessment & Plan Assessment & Plan (1) History of breast cancer: Code(s): Z85.3 - Personal history of malignant neoplasm of breast Category: Medical Plan: She continues to do well after treatment for her invasive ductal cancer. Current exam does not suggest any recurrence. She has no palpable breast masses or any nipple or skin changes. There is no palpable lymph nodes in the axilla She is scheduled to have her follow-up mammogram this April,. If this is unremarkable, I can probably see her again in the office next year. She remains on letrozole and continues to follow up with Dr. Allen of Oncology. Coding Level of Care Code Est Pt Level 3 (89065) Complex EM visit Add On G2211 Diagnoses History of breast cancer Z85.3
[2025-03-05 15:22] VITALS: BP 117/56; PULSE 67; BMI 28.0
--- OUTSIDE RECORDS SUMMARY | 2025-03-05 16:28 | XMS_ITS | Clinical Summary ---
Author Organization [facility] Address [address] [place] [address] Phone Care Team Providers Care Website Developer Name Role Phone Jodi Vigil MD Primary Care Provider [phone] Allergies Active Allergy Reactions Criticality Noted Date Comments Adhesive Tape-Silicones Rash 07/31/2024 Lisinopril 06/25/2024 Medications apixaban (ELIQUIS) 5 mg tablet Take by mouth 2 times daily. Active calcium carbonate-vit D3-min 600 mg-10 mcg (400 unit) tablet Take 1 tablet by mouth 1 (one) time each day. Active fluticasone propionate (FLONASE) 50 mcg/actuation nasal spray 2 Sprays by Each Nare route daily. Active furosemide (LASIX) 20 mg tablet Take 1 tablet (20 mg total) by mouth 1 (one) time each day. Active letrozole (FEMARA) 2.5 mg tablet Take 1 tablet (2.5 mg total) by mouth 1 (one) time each day Take with or without food. Active sacubitriL-valsar duran (ENTRESTO) 49-51 mg per tablet Take 1 tablet by mouth 2 (two) times a day. 60 each 4 06/26/20 25 Active spironolactone (ALDACTONE) 25 mg tablet Take 1 tablet (25 mg total) by mouth 1 (one) time each day. 30 each 06/26/20 25 Active metoprolol succinate (TOPROL-XL) 25 mg 24 hr tabletIndications :Paroxysmal atrial fibrillation (CMS/HCC V24, CMS/HCC V28) Take 1 tablet (25 mg total) by mouth 1 (one) time each day. Do not crush or chew. 30 each 11/13/19 26 Active Active Problems Problem Noted Date Diagnosed Date Cardiac amyloidosis (CMS/HCC V24, CMS/HCC V28) 0 11/01/2024 Assessment & Plan (11/01/2024 5:55 PM EDT): Patient with dilated cardiomyopathy with physical and clinical findings consistent with possible amyloid. Patient with a positive PYP scan suspicious for amyloid. Lab work suspicious for amyloid. I will set her up for fat pad biopsy locally. I will refer her to the amyloid clinic at [facility] in [place] Orders: Ambulatory referral to General Surgery; Future Atrial fibrillation (CMS/HCC V24, CMS/HCC V28) 1 08/15/2023 Assessment & Plan (11/01/2024 5:55 PM EDT): Patient is status post successful A-fib ablation Assessment & Plan (07/31/2024 4:15 PM EST): Patient is in sinus rhythm status post ablation. Remains on Eliquis. Lipid lightheadedness for which we did decrease her metoprolol to 25 mg twice daily to try to stop some of those symptoms now that she is on and rate/rhythm control she does not need to be asked stringently rate controlled that she had been in the past. She still remains on diuretic therapy does not appear to be euvolemic or dry I am going to have her check stat electrolytes to see if we need to back off on her diuresis. Will have her back in a few months and reassess her ejection fraction and also a discussion with her concerning discontinuation of anticoagulation. Orders: ECG 12 lead metoprolol tartrate (LOPRESSOR) 50 mg tablet; Take 0.5 tablets (25 mg total) by mouth 2 (two) times a day. Basic metabolic panel; Future Basic metabolic panel; Future Assessment & Plan (06/26/2024 10:29 AM EST): Her heart rate is well controlled with the current dose of metoprolol. She will continue metoprolol 50 mg twice a day. Patient's CHADSVASC score is 5 representing a 7.2% risk of thromobembolism. Anticoagulation is indicated to reduce risk of stroke. To reduce the risk of stroke, she will remain on Eliquis. No refill is needed at this time as she recently picked up a 90-day supply. Deep vein thrombosis (CMS/HCC V24, CMS/HCC V28) 06/14/2024 HFrEF (heart failure with re duced ejection fraction) (CMS/HCC V24, CMS/HCC V28) 06/14/2024 Assessment & Plan (11/01/2024 5:55 PM EDT): Patient with HFrEF. No evidence of volume overload at the present time is euvolemic on guideline directed therapy Assessment & Plan (07/31/2024 4:15 PM EST): Patient with HFrEF possibly secondary to A-fib. She was scheduled for an echocardiogram but we are going to cancel that she has an MRI on 11 August which would be a much more accurate assessment of her ejection fraction. I also want to continue the MRI to see if there is any evidence of infarct based on the results of her nuclear scan which showed a fixed defect. This may be a false positive the MRI will be much more sensitive for looking for any evidence of scar. And may require suggesting medical therapy if her EF remains low and has a substantial area of scar tissue. She was not cath for the low EF. Patient will continue guideline directed therapy Assessment & Plan (06/26/2024 4:45 PM EST): Cardiomyopathy with Heart Failure with Reduced Ejection Fraction (HFrEF) -EF 30 to 35%. Her cardiac function is compromised, potentially due to atrial fibrillation. The current regimen of metoprolol appears to be effectively controlling her heart rate. The dosage of Entresto will be escalated to 49/51 mg, to be administered twice daily. She is advised to take 2 tablets in the morning and 2 tablets at night until the new prescription is filled. Spironolactone will be introduced into her treatment plan. A nuclear stress test will be conducted to assess for any coronary artery disease. A cardiac MRI will also be performed to rule out infiltrative cardiomyopathy or other underlying conditions that could be contributing to the decreased cardiac function. She is encouraged to maintain her current level of activity, provided it does not induce shortness of breath. Dietary modifications, including a reduction in salt intake, are recommended. She is instructed to report any weight gain exceeding 2 pounds in a day or 5 pounds in a week. If the lab results are within normal limits, Farxiga may be added to her medication regimen. HLD (hyperlipidemia) 11/01/2021 HTN (hypertension) 11/01/2021 Assessment & Plan (06/26/2024 10:34 AM EST): She will continue her current antihypertensive medications, including metoprolol and Entresto. The dosage of Entresto will be increased to 49/51 mg twice a day. Supraventricular premature beats 11/01/2021 Assessment & Plan (06/26/2024 10:34 AM EST): Patient has history of supraventricular premature beats. No complaints of palpitations at this time. Resolved Problems Problem Noted Date Diagnosed Date Resolved Date Acute CHF (CMS/HCC V24, CMS/HCC V28) 06/14/2024 06/26/2024 Encounters Date Type Department Care Team Description 02/25/[address] [place] [address] Rigoberto Mancilla MD 12/18/[address] [place] [address] Jodi Vigil MD 12/18/[address] [place] [address] Jodi Vigil MD from Last 3 Months Surgical History Surgery Date Site/Laterality Comments COLONOSCOPY 2012 PROCEDURE: HISTORICAL COLONOSCOPY CARPAL TUNNEL RELEASE Right PROCEDURE: [facility] NEUROPLASTY &/TRANSPOS MEDIAN NRV CARPAL TUNNE ABLATION DONE ON 07/18/2024 AT [facility] [place] INDICATIONS:Atrial Fibrillation Medical History Medical History Date Comments CTS (carpal tunnel syndrome) DX: CTS (carpal tunnel syndrome) Varicose veins of both lower extremities with pain DX:Varicose veins of both lo wer extremities with pain Breast cancer (CMS/HCC V24, CMS/HCC V28) Superficial thrombophlebitis Extremity edema History of DVT (deep vein thrombosis) History of bilateral breast cancer Family History Medical History Relation Name Comments Hypertension Father Prostate cancer Father Hypertension Mother Other: Utertus Neoplasm, Malignant Mother Relation Name Status Comments Father Mother Social History Tobacco Use Types Packs/Day Years Used Date Smoking Tobacco: Never Smokeless Tobacco: Never Alcohol Use Standard Drinks/Week Comments Not Currently 0 (1 standard drink = 0.6 oz pur e alcohol) Comments Unknown Sex and Gender Information Value Date Recorded Sex Assigned at Not on file Legal Sex Female 5:27 AM EST Gender Identity Not on file Sexual Orientation Not on file Obstetrics History Last Filed Vital Signs Vital Sign Reading Time Taken Comments Blood Pressure 124/76 11/12/2024 1:51 PM EDT Pulse 60 11/12/2024 1:20 PM EDT Temperature - - Respiratory Rate - - Oxygen Saturation 98% 11/12/2024 1:20 PM EDT Inhaled Oxygen Concentration - - Weight 80.3 kg (177 lb) 11/12/2024 1:20 PM EDT Height 167.6 cm (5' 6 ) 11/12/2024 1:20 PM EDT Body Mass Index 28.57 11/12/2024 1:20 PM EDT Plan of Treatment Upcoming Encounters Date Type Department Care Team (Late st Contact Info) Description 04/10/2025 7:40 AM EDT Office Visit [facility] [address] [place] [phone] Ethel Meneses NP [address] [place] [address] [place] [phone] 05/22/2025 9:40 AM EST Office Visit [facility] [address] [place] [phone] Tasia Potts PA [address] [place] [address] Health Maintenance Due Date Last Done Comments COVID-19 Vaccine (#1) 12/08/1950 DTaP,Tdap,and Td Vaccines (1 - Tdap) 1965 Pneumococcal Vaccine: 50+ Years (1 of 2 - PCV) 1965 Zoster Vaccines (1 of 2) 1965 RSV Immunization Adult Patients (1 - 1-dose 75+ series) 2021 Cholesterol Screening (Lipid Panel) 06/12/2022 Falls Risk Assessment 06/12/2022 Hepatitis C Screening 06/12/2022 Osteoporosis Screening (Bone Density Screening) 06/12/2022 Social Influencers of Health Screening 06/12/2022 Medicare Annual Wellness Visit 08/02/2023 08/02/2022 Depression Screening 07/10/2024 Influenza Vaccine (#1) 2025 2, 04/27/2021, 04/04/2020, Additional history exists Hypertension/CHF/CAD Annual BMP Blood Test 12/11/2025 12/11/2024, 07/31/2024, 07/04/2024 HIB Vaccines Aged Out No longer eligi ble based on patient's age to complete this topic HPV Vaccines Aged Out No longer eligi ble based on patient's age to complete this topic Hepatitis A Vaccines Aged Out No long er eligible based on patient's age to complete this topic Hepatitis B Vaccines Aged Out No long er eligible based on patient's age to complete this topic IPV Vaccines Aged Out No longer eligi ble based on patient's age to complete this topic MMR Vaccines Aged Out No longer eligi ble based on patient's age to complete this topic Meningococcal ACWY Vaccine Aged Out N o longer eligible based on patient's age to complete this topic Meningococcal B Vaccine Aged Out No l onger eligible based on patient's age to complete this topic RSV Immunization Patients Under 20 months Aged Out No longer eligible based on patient's age to complete this topic Varicella Vaccines Aged Out No longer eligible based on patient's age to complete this topic Procedures Procedure Name Priority Date/Time Associated Diagnosis Comments BASIC METABOLIC PANEL Routine 07/31/2024 3:42 PM EST Atrial fibrillation, unspecified type (CMS/HCC V24, CMS/HCC V28) from Last 3 Months or Most Recently Relevant to Health Maintenance Results * (ABNORMAL) Basic metabolic panel (07/31/2024 3:42 PM EST) Glucose 64(L) 70 - 99 mg/dL [facility] Blood Urea Nitrogen (BUN) 26 8 - 27 mg/dL [facility] Creatinine 1.14(H) 0.57 - 1.00 mg/dL [facility] 1 eGFR 50(L) >59 mL/min/1.7 3 [facility] 1 BUN/Creatinine Ratio 23 12 - 28 [facility] 1 Sodium 142 134 - 144 mmol/L [facility] 1 Potassium 4.5 3.5 - 5.2 mmol/L [facility] 1 Chloride 102 96 - 106 mmol/L [facility] 1 Carbon Dioxide 27 20 - 29 mmol/L [facility] 1 Calcium 9.7 8.7 - 10.3 mg/dL [facility] 1 Blood Venous blood specimen / Unknown 07/31/2024 3:42 PM EST 07/31/2024 Narrative [facility] 1 - 08/01/2024 8:08 AM EST Performed at: 01 - [facility] [address] [id number] Network Relay Tester: Alexa Diop MD, Phone: [phone] Rigoberto Mancilla MD LAB BLOOD ORDERABLES Final Res ult [facility] 1 from Last 3 Months or Most Recently Relevant to Health [place] [id number] [facility] Care Teams Website Developer Relationship Specialty Start Date End Date Jodi Vigil MD [address] [place] [address] PCP - General Internal Medicine 06/26/24
--- OUTSIDE RECORDS SUMMARY | 2025-03-05 16:28 | XMS_ITS | Encounter Summary ---
Author Organization [facility] Address [address] [place] [address] Care Team Providers Care Mobile Qa Tester Name Role Phone Jodi Vigil MD Primary Care Provider [phone] Reason for Visit * Reason Onset Date Comments medical records 02/25/2025 Encounter Details Date Type Department Care Team (Late st Contact Info) Description 02/25/2025 Telephone [facility] [address] [place] [address] Rigoberto Mancilla MD [address] [place] [address] Dr [address] [place] [phone] Social History Tobacco Use Types Packs/Day Years Used Date Smoking Tobacco: Never Smokeless Tobacco: Never Alcohol Use Standard Drinks/Week Comments Not Currently 0 (1 standard drink = 0.6 oz pur e alcohol) Comments Unknown Sex and Gender Information Value Date Recorded Sex Assigned at Not on file Legal Sex Female 5:27 AM EST Gender Identity Not on file Sexual Orientation Not on file documented as of this encounter Progress Notes * Linda Carpenter - 02/25/2025 10:09 AM EDT Medical Records Request Caller: Patient Calling from: Self Requesting provider's first & last name: Direct Phone Number or Ext: [phone] What records are being requested: office note, testing How far back: office note 11/12/24 Testing 10/14/24 What is it for: recently diagnosed with Amloidosis, needs records for family testing Needed by: not urgent Fax Number: Please mail to the address on file. documented in this encounter Plan of Treatment Upcoming Encounters Date Type Department Care Team (Late st Contact Info) Description 04/10/2025 7:40 AM EDT Office Visit [facility] [address] [place] [address] [address] [place] [address] Ethel Meneses NP [address] [place] [address] Dr [address] [place] [phone] 05/22/2025 9:40 AM EST Office Visit [facility] [address] [place] [phone] Tasia Potts PA [address] [place] [address] [address] [place] [address] documented as of this encounter Visit Diagnoses Not on filedocumented in this encounter Care Teams Mobile Qa Tester Relationship Specialty Start Date End Date Jodi Vigil MD [address] [place] [address] PCP - General Internal Medicine 06/26/24 documented as of this encounter
== END 2025-03-05 15:33 | disposition home or self-care (01) ==
LOC: HO.HGS 15:11
PROVIDERS: PCP Internal Medicine; Visit Provider Surgery
DX: Z85.3 Personal history of malignant neoplasm of breast (principal)
CPT/HCPCS: 99213; G2211

== ENCOUNTER → 2025-03-05 15:11 | Outpatient (BNVA) | payer MEDICARE, SELFPAY | PROVIDERS: PCP Internal Medicine; Visit Provider Surgery | DX: C50.911 Malignant neoplasm of unspecified site of right female breast (principal); Z92.3 Personal history of irradiation | CPT/HCPCS: 99212 ==

== ENCOUNTER 2025-04-17 10:49 | Outpatient (REF) | payer MEDICARE, SELFPAY ==
--- NOTE | ~2025-04-17 | MM_ITS ---
EXAMINATION: MM DIAGNOSTIC DIGITAL BREAST TOMOSYNTHESIS, BILATERAL CLINICAL INFORMATION: History of right breast cancer in 2022 status post lumpectomy. Yearly screening mammography. COMPARISON: Mammography: Comparison is made with relevant prior exams. TECHNIQUE: Digital breast mammography with tomosynthesis is performed in both the craniocaudal and mediolateral oblique views along with computer-aided detection (CAD). FINDINGS: The breasts are heterogeneously dense, which may obscure small masses. Right post lumpectomy changes are stable. There are no significant masses, abnormal calcifications, or other abnormalities. Results are provided to the patient at time of visit by the technologist. MM/MM tomosynthesis diagnostic BI IMPRESSION: Right: Status post right lumpectomy changes. No mammographic evidence of malignancy. Left: Negative. ASSESSMENT: BI-RADS Category 2: Benign RECOMMENDATION: 1 year F/U This patient's information was entered into a reminder system with a target due date for their next mammogram. Electronically signed by: Adina Cohen DO 04/17/2025 12:14 PM EDT
== END 2025-04-17 10:50 | disposition home or self-care (01) ==
LOC: HO.MAMMO 10:49
PROVIDERS: PCP Internal Medicine; Visit Provider Surgery
DX: R92.1 Mammographic calcification found on diagnostic imaging of breast (principal); Z85.3 Personal history of malignant neoplasm of breast
CPT/HCPCS: 77062; 77066

== ENCOUNTER → 2025-04-17 11:00 | Outpatient (BNV) | payer MEDICARE, SELFPAY | PROVIDERS: PCP Internal Medicine; Visit Provider Internal Medicine | DX: Z85.3 Personal history of malignant neoplasm of breast (principal) | CPT/HCPCS: 77066; G0279 ==